=== PATIENT | female | born 1955 | race Hispanic/Latino ===

== ENCOUNTER 2018-01-05 19:19 | Emergency (ER) | payer OTHER ==
[~2018-01-05] VITALS: Ht 165.1 cm; Wt 54.0 kg
[2018-01-05] MEDS ORDERED: ONDANSETRON HCL INJ 2 MG/ML VIAL IV STA (19:53)
[2018-01-05] MEDS ORDERED: SODIUM CHLORIDE 0.9% 1000ML 1,000 ML IV SCH (20:00)
--- NOTE | 2018-01-05 20:40 | Diagnostic Imaging Report ---
EXAMINATION: CXR 2 VIEW - HOPD INDICATION: Weakness, cough, left shoulder discomfort COMPARISON: None FINDINGS: TUBES and LINES: None. LUNGS: Lungs are well inflated. Lungs are clear. There is no evidence of pneumonia or pulmonary edema. PLEURA: No pleural effusion or pneumothorax. HEART AND MEDIASTINUM: The cardiomediastinal silhouette is unremarkable. There are atherosclerotic calcifications within the aorta. BONES AND SOFT TISSUES: No acute osseous lesion. Soft tissues are unremarkable. UPPER ABDOMEN: No free air under the diaphragm. IMPRESSION: No acute thoracic abnormality. Signed by: Dr. Sonu Herrera M.D. on 01/05/2018 8:37 PM
[2018-01-05] MEDS ORDERED: CEFTRIAXONE SOD 1 GM VIAL IV SCH (21:30)
[2018-01-05] MEDS ORDERED: SODIUM CHLORIDE 0.9% 500ML 500 ML IV ONE (21:30)
[2018-01-05] MEDS ORDERED: AMOXICILLIN500 MG PO (21:49)
[2018-01-05] MEDS ORDERED: ZOFRAN ODT4 MG PO (21:50)
== END 2018-01-05 22:18 | disposition home or self-care (01) ==
LOC: FSED 19:19
DX: R11.2 Nausea with vomiting, unspecified (principal); R53.1 Weakness; K52.9 Noninfective gastroenteritis and colitis, unspecified; E87.1 Hypo-osmolality and hyponatremia; E11.65 Type 2 diabetes mellitus with hyperglycemia; I10 Essential (primary) hypertension; E78.5 Hyperlipidemia, unspecified
CPT/HCPCS: 71046; 80053; 81003; 82553; 84484; 85025; 87086; 93005; 99284; J2405; J7040

== ENCOUNTER 2018-09-08 14:02 | Emergency (ER) | payer OTHER ==
[~2018-09-08] VITALS: Ht 165.1 cm; Wt 54.0 kg
[~2018-09-08 14:02] MED LIST: AMOXICILLIN500 MG PO; ZOFRAN ODT4 MG PO
--- OUTSIDE RECORDS SUMMARY | 2018-09-08 14:04 | XMS REPORT | Continuity of Care Document ---
Author Author [facility] Interface Address Unknown Phone Unavailable Problems Problem Status Onset Date Classification Date Reported Comments Source History of diabetes mellitus 08/06/2018 Diagnosis 08/06/2018 [facility] History of hypertension 08/06/2018 Diagnosis 08/06/2018 [facility] Lower respiratory tract infection 08/05/2018 Diagnosis 08/06/2018 [facility] Sore throat symptom 08/05/2018 Diagnosis 08/06/2018 [facility] Influenza due to Influenza A virus 08/05/2018 Diagnosis 08/06/2018 [facility] Acute sinusitis 04/22/2016 Diagnosis 04/22/2016 [facility] Allergic rhinitis 04/22/2016 Diagnosis 04/22/2016 [facility] Eustachian tube disorder 04/22/2016 Diagnosis 04/22/2016 [facility] Acute pharyngitis 04/22/2016 Diagnosis 04/22/2016 [facility] Cough Problem 08/06/2018 [facility] Bacterial Conjunctivitis Problem 04/22/2016 [facility] External Hordeolum Problem 04/22/2016 [facility] Cellulitis of Periorbital Region Problem 04/22/2016 [facility] Eustachian Tube Disorder Problem 04/22/2016 [facility] Common Cold Problem 04/22/2016 [facility] Acute Sinusitis Problem 04/22/2016 [facility] Acute Pharyngitis Problem 04/22/2016 [facility] Acute Upper Respiratory Infection Problem 04/22/2016 [facility] Allergic Rhinitis Problem 04/22/2016 [facility] Medications Medication Details Route Status Patient Instructions Ordering Provider Order Date Source Amoxicillin 500 Mg Capsule Twice A Day for Urinary Tract Infection [facility] Ondansetron (Zofran Odt) 4 Mg Tab.rapdis Every 6 Hours for Nausea Active [facility] 01/05/2018 [facility] 0.5 ML influenza A virus A/[place]/[id number] (H1N1) antigen 0.03 MG/ML / influenza A virus A/[place]/[id number] (H3N2) antigen 0.03 MG/ML / influenza B virus B/ antigen 0.03 MG/ML / influenza B virus B/[facility] antigen 0.03 MG/ML Prefilled Syringe [Afluria Quadrivalent ] Afluria Quad (PF) 60 mcg (15 mcg x 4)/0.5 mL IM syringe TO BE ADMINISTERED BY PHARMACIST FOR IMMUNIZATION Active [facility] Fluticasone propionate 0.05 MG/ACTUAT Metered Dose Nasal [place] fluticasone propionate 50 mcg/actuation nasal spray,suspension [place] 2 sprays every day by intranasal route at bedtime for 5 days. Active [facility] 24 HR Glipizide 10 MG Extended Release Oral Tablet glipizide ER 10 mg tablet, extended release 24 hr Active [facility] Losartan Potassium 50 MG Oral Tablet losartan 50 mg tablet Active [facility] 200 ACTUAT Albuterol 0.09 MG/ACTUAT Metered Dose Inhaler [ProAir] ProAir HFA 90 mcg/actuation aerosol inhaler Inhale 2 puffs every 4 hours by inhalation route as needed. Active [facility] Oseltamivir 75 MG Oral Capsule [Tamiflu] Tamiflu 75 mg capsule Take 1 capsule twice a day by oral route for 5 days. Active [facility] benzonatate 100 MG Oral Capsule [Tessalon Perles] Tessalon Perles 100 mg capsule Take 1 capsule 3 times a day by oral route for 7 days. Active [facility] Azithromycin 250 MG Oral Tablet Zithromax Z-Garry 250 mg tablet TAKE 2 TABLETS (500 MG) BY ORAL ROUTE ONCE DAILY FOR 1 DAY THEN 1 TABLET (250 MG) BY ORAL ROUTE ONCE DAILY FOR 4 DAYS Active [facility] Amoxicillin 875 MG / Clavulanate 125 MG Oral Tablet [Augmentin] Augmentin 875 mg-125 mg tablet Take 1 tablet every 12 hours by oral route with meals for 7 days. Active [facility] Fluarix Quad (PF) 60 mcg (15 mcg x 4)/0.5 mL IM syringe Fluarix Quad (PF) 60 mcg (15 mcg x 4)/0.5 mL IM syringe TO BE ADMINISTERED BY PHARMACIST FOR IMMUNIZATION Active [facility] Losartan Potassium 25 MG Oral Tablet losartan 25 mg tablet Active [facility] 24 HR Metformin hydrochloride 500 MG Extended Release Oral Tablet metformin ER 500 mg tablet,extended release 24 hr Active [facility] levocetirizine dihydrochloride 5 MG Oral Tablet [Xyzal] Xyzal 5 mg tablet Take 1 tablet every day by oral route at bedtime for drainage/allergies for 30 days. Active [facility] Allergies, Adverse Reactions, Alerts Substance Category Reaction Severity Reaction type Status Date Reported Comments Source Immunizations Immunization Date Given Site Status Last Updated Comments Source influenza, injectable, quadrivalent 01/19/2018 completed [facility] Results Order Name Results Value Reference Range Date Interpretation Comments Source PEF 250 08/05/2018 [facility] Percent Predicted Value 58 08/05/2018 [facility] RESULT negative 08/05/2018 [facility] SWAB LOCATION Left and Right tonsillar pillars 08/05/2018 [facility] Influenza A positive 08/05/2018 [facility] Influenza B negative 08/05/2018 [facility] RESULT negative 04/22/2016 [facility] SWAB LOCATION Left and Right tonsillar pillars 04/22/2016 [facility] Vital Signs Vital Sign Value Date Comments Source Diastolic (mm Hg) 72 08/05/2018 [facility] Height 64 08/05/2018 [facility] Systolic (mm Hg) 120 08/05/2018 [facility] Weight 117 08/05/2018 [facility] Diastolic (mm Hg) 84 04/22/2016 [facility] Height 64 04/22/2016 [facility] Systolic (mm Hg) 130 04/22/2016 [facility] Weight 121 04/22/2016 [facility] Encounters Location Location Details Encounter Type Encounter Number Reason For Visit Attending Provider ADM Date DC Date Status Source [place] - [facility] - [id number] Kaba: [address] [place] [address], Ph. [id number] Radha Carrasco 04/22/2016 [facility] Departed Emergency Room [id number] MOY DOMINGUEZ MD 01/05/2018 01/05/2018 [facility] [place] - [facility] - [id number] Aguero-C: [address] [place] [address], Ph. [id number] Waqar Leigh 08/05/2018 [facility] Procedures Procedure Code Date Perfomer Comments Source
--- OUTSIDE RECORDS SUMMARY | 2018-09-08 14:04 | XMS REPORT | Encounter Summary ---
Author Organization Unknown Address [address] [place] [address] Phone [phone] Reason for Visit Medical Complaint Instructions 1. Influenza due to Influenza A virus Tamiflu 75 mg capsule Tessalon Perles 100 mg capsule fluticasone propionate 50 mcg/actuation nasal spray,suspension rapid flu (A+B) influenza (flu): care instructions 2. Sore throat symptom sore throat: care instructions rapid strep group A, throat 3. Lower respiratory tract infection ProAir HFA 90 mcg/actuation aerosol inhaler Zithromax Z-Garry 250 mg tablet walking pneumonia: care instructions peak flow 4. History of hypertension 5. History of diabetes mellitus Discussion Note Take charge of your health handout given and discussed. SE of medictions discussed and pt verbalized understanding. Plan of Care Patient Instructions How can you care for yourself at home? Be safe with medicines. Take your medicines exactly as prescribed. Call your doctor if you think you are having a problem with your medicine. Take your antibiotics as directed. Do not stop taking them just because you feel better. You need to take the full course of antibiotics. Ask your doctor if you can take an vfjk-cma-blcctvo pain medicine, such as acetaminophen (Tylenol), ibuprofen (Advil, Motrin), or naproxen (Aleve). Read and follow all instructions on the label. Do not take two or more pain medicines at the same time unless the doctor told you to. Many pain medicines have acetaminophen, which is Tylenol. Too much acetaminophen (Tylenol) can be harmful. Take care of your cough so you can rest. A cough that brings up mucus from your lungs is common with pneumonia. It is one way your body gets rid of the infection. But if coughing keeps you from resting or causes severe fatigue and chest-wall pain, talk to your doctor. He or she may suggest that you take a medicine to reduce the cough. Do not smoke or allow others to smoke around you. When should you call for help? Call 911 anytime you think you may need emergency care. For example, call if: You have severe trouble breathing. Call your doctor now or seek immediate medical care if: You cough up dark brown or bloody mucus (sputum). You have new or worse trouble breathing. You are dizzy or lightheaded, or you feel like you may faint. Watch closely for changes in your health, and be sure to contact your doctor if: You have a new or higher fever. Your cough or wheezing has not gone away after 2 to 4 weeks. You are not getting better as expected. How can you care for yourself at home? Get plenty of rest. Drink plenty of fluids, enough so that your urine is light yellow or clear like water. If you have kidney, heart, or liver disease and have to limit fluids, talk with your doctor before you increase the amount of fluids you drink. Take an iiux-djn-sjgpydv pain medicine if needed, such as acetaminophen (Tylenol), ibuprofen (Advil, Motrin), or naproxen (Aleve), to relieve fever, headache, and muscle aches. Read and follow all instructions on the label. No one younger than 20 should take aspirin. It has been linked to Anita syndrome, a serious illness. Do not smoke. Smoking can make the flu worse. If you need help quitting, talk to your doctor about stop-smoking programs and medicines. These can increase your chances of quitting for good. Breathe moist air from a hot shower or from a sink filled with hot water to help clear a stuffy nose. Before you use cough and cold medicines, check the label. These medicines may not be safe for young children or for people with certain health problems. If the skin around your nose and lips becomes sore, put some petroleum jelly on the area. To ease coughing: Drink fluids to soothe a scratchy throat. Suck on cough drops or plain hard candy. Take an ijfk-vaj-pvqqxzw cough medicine that contains dextromethorphan to help you get some sleep. Read and follow all instructions on the label. Raise your head at night with an extra pillow. This may help you rest if coughing keeps you awake. Take any prescribed medicine exactly as directed. Call your doctor if you think you are having a problem with your medicine. To avoid spreading the flu Wash your hands regularly, and keep your hands away from your face. Stay home from school, work, and other public places until you are feeling better and your fever has been gone for at least 24 hours. The fever needs to have gone away on its own without the help of medicine. Ask people living with you to talk to their doctors about preventing the flu. They may get antiviral medicine to keep from getting the flu from you. To prevent the flu in the future, get a flu vaccine every fall. Encourage people living with you to get the vaccine. Cover your mouth when you cough or sneeze. When should you call for help? Call 911 anytime you think you may need emergency care. For example, call if: You have severe trouble breathing. Call your doctor now or seek immediate medical care if: You have new or worse trouble breathing. You seem to be getting much sicker. You feel very sleepy or confused. You have a new or higher fever. You get a new rash. Watch closely for changes in your health, and be sure to contact your doctor if: You begin to get better and then get worse. You are not getting better after 1 week. Reminders Provider Appointments Medical 08/06/2018 9:25AM [id number], TECH Lab Rapid Flu (A+B) 08/05/2018 [facility] Rapid Strep Group a, Throat 08/05/2018 [facility] Referral None recorded. Procedures None recorded. Surgeries None recorded. Imaging None recorded. Medications Name Start Date [facility] [id number] (PF) 60 mcg (15 mcg x 4)/0.5 mL IM syringe TO BE ADMINISTERED BY PHARMACIST FOR IMMUNIZATION fluticasone propionate 50 mcg/actuation nasal spray,suspension [place] 2 sprays every day by intranasal route at bedtime for 5 days. glipizide ER 10 mg tablet, extended release 24 hr losartan 50 mg tablet ProAir HFA 90 mcg/actuation aerosol inhaler Inhale 2 puffs every 4 hours by inhalation route as needed. Tamiflu 75 mg capsule Take 1 capsule twice a day by oral route for 5 days. Tessalon Perles 100 mg capsule Take 1 capsule 3 times a day by oral route for 7 days. Zithromax Z-Garry 250 mg tablet TAKE 2 TABLETS (500 MG) BY ORAL ROUTE ONCE DAILY FOR 1 DAY THEN 1 TABLET (250 MG) BY ORAL ROUTE ONCE DAILY FOR 4 DAYS Medications Administered None recorded. Vitals Height Weight BMI Blood Pressure 5 ft 4 in 117 lbs 20.1 kg/m2 120/72 mm[Hg] Lab Results Date Name Specimen Result Interpretation Description Value Range Status Address Peak Flow Pef 250 [facility]: [address] [place] [address] Percent Predicted Value 58 [facility]: [address] [place] [address] Rapid Strep Group a, Throat Result negative [facility]: [facility] Swab Location Left and Right tonsillar pillars [facility]: [facility] Rapid Flu (A+B) Influenza a positive [facility]: [address] [place] [address] Influenza B negative [facility]: [address] [place] [address] Allergies Code Code System Name Reaction Severity Status Onset NKDA Problems Name Status Onset Date Source Cough Active Encounter Procedures None recorded. Vaccine List Vaccine Type influenza, injectable, quadrivalent 01/19/2018 Social History Smoking Status Never Smoker Past Encounters 08/05/2018 Influenza Due to Influenza a Virus; Sore Throat Symptom; Lower Respiratory Tract Infection; History of Hypertension; History of Diabetes Mellitus Waqar Leigh, [employer]-C: [address] [place] [address], Ph. History of Present Illness Prollkg-Yctpy-Ogi Reported By: Patient HPI: Quality: symptoms worse in the evening. Duration: 1 days. Context: no tick/insect bites, no recent travel, no new medications, ill contacts. Associated Symptoms: no headache, no muscle aches, no rash, no lethargy, fever/chills, cold symptoms, tired (fatigue), cough, nasal discharge; sneezing, sore throat. Modifying Factors OTC medication Review of Systems:ROS as noted in the HPI Review of Systems Basic Reported By: Patient Physical Exam Adult Basic, Adult Female Complete Reported By: Patient Constitutional: General Appearance: healthy-appearing, well-nourished, well-developed. Level of Distress: moderate distress, acutely ill. Ambulation: ambulating normally Psychiatric: Mental Status: active and alert. Orientation: to time, to place, to person Eyes: Lids and Conjunctivae: no discharge, no pallor, injected Gof-Iqha-Ypwqu-Throat: Ears: no lesions on external ear, no outer ear tenderness, EACs clear, TM opacified. Hearing: no hearing loss. Nose: no lesions on external nose, nares patent, no septal deviation, nasal passages clear, nasal discharge--rhinorrhea, post nasal drip. Lips, Teeth, and Gums: no mouth or lip ulcers, no bleeding gums, normal dentition. Oropharynx: moist mucous membranes, no erythema, no exudates, tonsils not enlarged Neck: Neck: supple, trachea midline, no masses, FROM. Lymph Nodes: no supraclavicular LAD, no axillary LAD, no inguinal LAD, anterior cervical LAD. Thyroid: no enlargement, non-tender, no nodules Lungs: Respiratory effort: no dyspnea, no tachypnea, no use of accessory muscles, no intercostal retractions. Auscultation: breath sounds normal Cardiovascular: Heart Auscultation: RRR, no murmurs Skin: Inspection and palpation: no rash
--- OUTSIDE RECORDS SUMMARY | 2018-09-08 14:05 | XMS REPORT ---
Author Author [facility] Address Unknown Phone Unavailable Care Team Providers Care Communications Engineering Technician Name Role Phone Estrella DOMINGUEZ Unavailable Unavailable Problems This patient has no known problems. Allergies, Adverse Reactions, Alerts This patient has no known allergies or adverse reactions. Medications This patient has no known medications. Results Test Description Test Time Test Comments Text Results Atomic Results Result Comments CXR 2 VIEW - HOPD 2018-01-05 20:36:00 [place] [address] Patient Name: LASHON HENLEY MR #: [id number] : 1955 Age/Sex: 62/F Req #: [id number] Adm Physician: Ordered by: MOY DOMINGUEZ MD Report #: [id number] Location: [facility] Room/Bed: Procedure: [id number] HOPD/CXR 2 VIEW - HOPD Exam Date: 01/05/18 Exam Time: 2024 REPORT STATUS: Signed EXAMINATION: CXR 2 VIEW - HOPD INDICATION: Weakness, cough, left shoulder discomfort COMPARISON: None FINDINGS: TUBES and LINES: None. LUNGS: Lungs are well inflated. Lungs are clear. There is no evidence of pneumonia or pulmonary edema. PLEURA: No pleural effusion or pneumothorax. HEART AND MEDIASTINUM: The cardiomediastinal silhouette is unremarkable. There are atherosclerotic calcifications within the aorta. BONES AND SOFT TISSUES: No acute osseous lesion. Soft tissues are unremarkable. UPPER ABDOMEN: No free air under the diaphragm. IMPRESSION: No acute thoracic abnormality. Signed by: Dr. Sonu Herrera M.D. on 01/05/2018 8:37 PM Dictated By: SONU BAKER MD 36 Transcribed By: KISHORE on 01/05/182036 COPY TO: MOY DOMINGUEZ MD
--- OUTSIDE RECORDS SUMMARY | 2018-09-08 14:05 | XMS REPORT | Encounter Summary ---
Author Organization Unknown Address [address] [place] [address] Phone [phone] Reason for Visit Medical Complaint; sore throat,cough, body aches , sinus pressure, congestion x 4 days Instructions 1. Acute sinusitis Augmentin 875 mg-125 mg tablet Xyzal 5 mg tablet fluticasone 50 mcg/actuation nasal spray,suspension 2. Allergic rhinitis 3. Eustachian tube disorder 4. Acute pharyngitis rapid strep group A, throat Discussion Note: None recorded. Patient educational handouts: No information available. Plan of Care Patient Instructions Take antibiotic as prescribed. Handwashing. Increase fluid intake and plenty of rest. May take tynenol/motrin for pain. may use cloraseptic throat spray for sore throat. If no improvement in 3-5 days, or worsening of symptoms, see primary care physician or call clinic. Reminders Provider Appointments None recorded. Lab Rapid Strep Group a, Throat 04/22/2016 [facility] Referral None recorded. Procedures None recorded. Surgeries None recorded. Imaging None recorded. Medications Name Start Date Augmentin 875 mg-125 mg tablet Take 1 tablet every 12 hours by oral route with meals for 7 days. Fluarix Quad [id number] (PF) 60 mcg (15 mcg x 4)/0.5 mL IM syringe TO BE ADMINISTERED BY PHARMACIST FOR IMMUNIZATION fluticasone 50 mcg/actuation nasal spray,suspension [place] 2 sprays every day by intranasal route at bedtime for 5 days. glipizide ER 10 mg tablet, extended release 24 hr losartan 25 mg tablet metformin ER 500 mg tablet,extended release 24 hr Xyzal 5 mg tablet Take 1 tablet every day by oral route at bedtime for drainage/allergies for 30 days. Medications Administered None recorded. Vitals Height Weight BMI Blood Pressure 5 ft 4 in 121 lbs 20.8 130/84 Lab Results Date Name Result Description Value Range Status Rapid Strep Group a, Throat Result negative Swab Location Left and Right tonsillar pillars Allergies Name Reaction Severity Onset NKDA Problems Name Status Onset Date Source Bacterial Conjunctivitis Active Encounter External Hordeolum Active Encounter Cellulitis of Periorbital Region Active Encounter Eustachian Tube Disorder Active Encounter Common Cold Active Encounter Acute Sinusitis Active Encounter Acute Pharyngitis Active Encounter Acute Upper Respiratory Infection Active Encounter Allergic Rhinitis Active Encounter Cough Active Encounter Procedures None recorded. Vaccine List None recorded. Social History Smoking Status Never Smoker Past Encounters 04/22/2016 Acute Sinusitis; Allergic Rhinitis; Eustachian Tube Disorder; Acute Pharyngitis Radha Carrasco, [facility]: [address] [place] [address], Ph. History of Present Illness Rmitf-Fafhovqfep-Vnwrojd Reported By: Patient HPI: Location: head/sinuses. Quality: productive cough, colored phlegm, nasal/sinus congestion. Duration: 4days. Severity: moderate. Onset/Timing: gradual. Context: no sick contacts, no foreign travel, non-smoker. Modifying factors: OTC medication. Associated Symptoms: no shortness of breath, no wheezing, no change in number of pillows needed to sleep at night, no sweats, no significant weight gain, no significant weight loss, no morning cough, no sore throat, no vomiting, no diarrhea, no rash, no nausea, no fever, no muscle aches, no headache, green sputum Review of Systems Basic Reported By: Patient Constitutional: Constitutional: fever Eyes: Eyes: no eye complaints Jioq-Qfnh-Bxhsd-Throat: Ears: ear pain. Nose: nose/sinus problems. Mouth/Throat: no bleeding gums, no mouth complaints, no teeth problems, sore throat Cardiovascular: Cardiovascular: no chest pain, no shortness of breath, no known heart murmur Respiratory: Respiratory: no wheezing, no shortness of breath, cough Gastrointestinal: Gastrointestinal: no abdominal pain, no vomiting / diarrhea Genitourinary: Genitourinary: no urinary complaints, no discharge Musculoskeletal: Musculoskeletal: no muscle aches, no muscle weakness, no arthralgias/joint pain, no back pain Skin: Skin: no abnormal / changing mole, no jaundice, no rashes Neurologic: Neurologic: no loss of consciousness, no weakness, no numbness, no seizures, no dizziness, no headaches Physical Exam Adult Basic, Adult Female Complete Constitutional: General Appearance: healthy-appearing, well-nourished, well-developed. Level of Distress: NAD. Ambulation: ambulating normally Psychiatric: Mental Status: active and alert. Orientation: to time, to place, to person Eyes: Lids and Conjunctivae: non-injected, no discharge, no pallor. Pupils: PERRLA. Corneas: grossly intact. EOM: EOMI. Lens: clear. Sclerae: non-icteric. Vision: acuity grossly intact Xef-Mbgt-Kohae-Throat: Ears: no lesions on external ear, no outer ear tenderness, EACs clear, TMs clear, middle ear fluid. Hearing: no hearing loss. Nose: no lesions on external nose, nares patent, no septal deviation, nasal passages clear, sinus tenderness, nasal discharge--purulent, post nasal drip. Lips, Teeth, and Gums: no mouth or lip ulcers, no bleeding gums, normal dentition. Oropharynx: moist mucous membranes, no exudates, tonsils not enlarged, erythema Neck: Neck: supple, trachea midline, no masses, FROM. Lymph Nodes: no supraclavicular LAD, anterior cervical LAD. Thyroid: no enlargement, non-tender, no nodules Lungs: Respiratory effort: no dyspnea, no tachypnea, no use of accessory muscles, no intercostal retractions. Auscultation: breath sounds normal Cardiovascular: Heart Auscultation: RRR, no murmurs. Neck vessels: no carotid bruits
[2018-09-08] MEDS ORDERED: TETANUS/DIPHTHERIA TOX ADULT 0.5 ML SYR IM STA (14:25)
[2018-09-08] MEDS ORDERED: BACITRACIN ZINC 0.9GM TP ONE (15:45)
== END 2018-09-08 15:42 | disposition home or self-care (01) ==
LOC: FSED 14:02
DX: S61.211A Laceration without foreign body of left index finger without damage to nail, initial encounter (principal); W26.0XXA Contact with knife, initial encounter; Y92.008 Other place in unspecified non-institutional (private) residence as the place of occurrence of the external cause; I10 Essential (primary) hypertension; E11.9 Type 2 diabetes mellitus without complications
CPT/HCPCS: 90471; 90714; 99284

== ENCOUNTER 2024-06-22 15:05 | Emergency (ER) | payer OTHER ==
[~2024-06-22] VITALS: Ht 162.6 cm; Wt 54.4 kg
[2024-06-22] MEDS: BACITRACIN ZINC 0.9GM TP ONE (15:20)
[2024-06-22] MEDS ORDERED: BACITRACIN ZINC 0.9GM TP ONE (15:22)
[2024-06-22] MEDS ORDERED: LIDOCAINE HCL 2% LOCAL 20 ML VIAL ONE (15:22)
[2024-06-22] MEDS ORDERED: CEPHALEXIN500 MG PO (15:27)
[2024-06-22 15:34] VITALS: PULSE 75; RESP 16; TEMP 97.8; O2SAT 99
[2024-06-22] MEDS: LIDOCAINE HCL 2% LOCAL 20 ML VIAL INJ ONE (15:36)
[2024-06-22] MEDS ORDERED: ROSUVASTATIN CA20 MG (16:42)
[2024-06-22] MEDS ORDERED: METFORMIN HCL500 MG PO (16:42)
[2024-06-22] MEDS ORDERED: LOSARTAN POTASS25 MG PO (16:43)
== END 2024-06-22 15:34 | disposition home or self-care (01) ==
LOC: FSED 15:15
DX: S61.211A Laceration without foreign body of left index finger without damage to nail, initial encounter (principal); W26.0XXA Contact with knife, initial encounter; Y93.G3 Activity, cooking and baking; Y92.89 Other specified places as the place of occurrence of the external cause; I10 Essential (primary) hypertension; E11.9 Type 2 diabetes mellitus without complications; E78.5 Hyperlipidemia, unspecified
CPT/HCPCS: 12002; 96372; 99283; J2003

== ENCOUNTER 2024-06-30 11:52 | Emergency (ER) | payer SELFPAY ==
[~2024-06-30 11:52] MED LIST changes: +CEPHALEXIN500 MG PO; +LOSARTAN POTASS25 MG PO; +METFORMIN HCL500 MG PO; +ROSUVASTATIN CA20 MG
[2024-06-30 12:20] VITALS: PULSE 76; RESP 18; TEMP 97.7; O2SAT 98
== END 2024-06-30 12:27 | disposition home or self-care (01) ==
LOC: FSED 12:11
DX: Z48.02 Encounter for removal of sutures (principal)
CPT/HCPCS: 99284

== ENCOUNTER 2024-07-12 13:51 | Emergency (ER) | payer OTHER ==
[~2024-07-12] VITALS: Ht 162.6 cm; Wt 52.8 kg
[2024-07-12 14:15] VITALS: PULSE 72; RESP 18; TEMP 97.9; O2SAT 100
== END 2024-07-12 14:41 | disposition home or self-care (01) ==
LOC: FSED 14:16
DX: S01.01XA Laceration without foreign body of scalp, initial encounter (principal); W22.09XA Striking against other stationary object, initial encounter; Y93.01 Activity, walking, marching and hiking; Y99.0 Civilian activity done for income or pay; I10 Essential (primary) hypertension; E11.9 Type 2 diabetes mellitus without complications; E78.5 Hyperlipidemia, unspecified
CPT/HCPCS: 99284

== ENCOUNTER 2024-11-19 18:46 | Emergency (ER) | payer OTHER ==
[~2024-11-19] VITALS: Ht 162.6 cm; Wt 52.6 kg
[2024-11-19 19:01] VITALS: RESP 16; TEMP 98
[2024-11-19] MEDS: KETOROLAC TROMETHAMINE 60 MG/2 ML VIAL IM ONE (19:15)
[2024-11-19] MEDS: FAMOTIDINE 20 MG TAB PO STA (20:54)
[2024-11-19 22:00] VITALS: PULSE 67
[2024-11-19] MEDS ORDERED: ULTRAM 50MG50 MG PO (22:15)
[2024-11-19 22:27] VITALS: BP 162/70; O2SAT 100
== END 2024-11-19 22:28 | disposition home or self-care (01) ==
LOC: ER 18:51
DX: S30.0XXA Contusion of lower back and pelvis, initial encounter (principal); W01.0XXA Fall on same level from slipping, tripping and stumbling without subsequent striking against object, initial encounter; Y93.01 Activity, walking, marching and hiking; Y92.26 Movie house or cinema as the place of occurrence of the external cause; I10 Essential (primary) hypertension; E11.9 Type 2 diabetes mellitus without complications; E78.5 Hyperlipidemia, unspecified
CPT/HCPCS: 72192; 99283; J1885